=== PATIENT | female | born 1950 | race Caucasian/White ===

== ENCOUNTER → 2016-10-18 | Outpatient (CLI) | payer MEDICARE, OTHER ==
[~2016-10-18] MED LIST: ATOR40TA PO; CALC0.5C PO; CALC200T3 PO; CELE200C PO; HYDR2TAB13 PO; LEVO125T PO; METF10002 PO; PROM25SU34 RC
[2016-10-18 11:50] LABS: BLOOD UREA NITROGEN 17 mg/dL (7-18)
[2016-10-18 11:51] LABS: ASPARTATE AMINO TRANSFERASE 26 U/L (15-37)
[2016-10-19 11:06] LABS: THYROGLOBULIN AB <1.0 IU/mL (0.0-0.9)
== END | disposition home or self-care (01) ==
LOC: STAR 10:26
PROVIDERS: ATTEND Surgery
DX: Z01.818 Encounter for other preprocedural examination (principal)
CPT/HCPCS: 36415; 71020; 80053; 84432; 85025; 86800; 93005

== ENCOUNTER 2016-10-28 07:13 | Observation (INO) | payer MEDICARE, OTHER ==
[~2016-10-28] VITALS: Ht 172.7 cm; Wt 102.0 kg
[~2016-10-28 07:13] MED LIST changes: -CALC0.5C PO; -CALC200T3 PO; -CELE200C PO; -HYDR2TAB13 PO; -LEVO125T PO; -PROM25SU34 RC
[2016-10-28] MEDS ORDERED: LIDOCAINE 1%, 2ML SQ PRN (07:30)
[2016-10-28] MEDS ORDERED: MIDAZOLAM 1 MG/ML, 2ML ONE (07:30)
[2016-10-28] MEDS ORDERED: FENTANYL PF 250 MCG/5ML ONE (07:30)
[2016-10-28] MEDS ORDERED: GABAPENTIN 300 MG CAPSULE PO STA (07:31)
[2016-10-28] MEDS ORDERED: ACETAMINOPHEN 500 MG TABLET PO STA (07:31)
[2016-10-28 07:33] VITALS: BP 122/80
[2016-10-28] MEDS: LACTATED RINGERS 1,000 ML IV SCH ×2 (07:53→13:03)
[2016-10-28] MEDS ORDERED: SUCCINYLCHOLINE 20 MG/ML, 10ML ONE (09:41)
[2016-10-28] MEDS ORDERED: PHENYLEPHRINE 10 MG/ML ONE (09:41)
[2016-10-28] MEDS ORDERED: ROCURONIUM 10 MG/ML ONE (09:41)
[2016-10-28] MEDS ORDERED: CEFAZOLIN 1,000 MG ONE (09:41)
[2016-10-28] MEDS ORDERED: PROPOFOL 10 MG/ML, 20ML ONE (09:41)
[2016-10-28] MEDS ORDERED: HYDROmorphone 1 MG/ML, 1ML IV PRN ×2 (10:00→12:00)
[2016-10-28] MEDS ORDERED: PROMETHAZINE 25 MG/ML, 1ML IV PRN (10:00)
[2016-10-28] MEDS ORDERED: LABETALOL 5MG/ML, 20ML IV PRN (10:00)
[2016-10-28] MEDS ORDERED: MEPERIDINE/PF 25MG/0.5ML IVPush PRN (10:00)
[2016-10-28] MEDS ORDERED: hydrALAzine 20 MG/ML, 1ML IV PRN (10:00)
[2016-10-28] MEDS ORDERED: OXYcodone 5 MG/5 ML ORAL.SOL UDC PO PRN (10:00)
[2016-10-28] MEDS ORDERED: ONDANSETRON 2MG/ML, 2ML IVPush PRN (10:00)
[2016-10-28] MEDS ORDERED: METOCLOPRAMIDE 5 MG/ML, 2ML IV PRN (10:00)
[2016-10-28] MEDS ORDERED: FENTANYL PF 100 MCG/2ML IV PRN (10:00)
[2016-10-28 10:57] LABS: IOPTH BASELINE 168 pg/mL
[2016-10-28] MEDS ORDERED: DIPHENHYDRAMINE 25 MG CAPSULE PO PRN (12:00)
[2016-10-28] MEDS ORDERED: DIPHENHYDRAMINE 50 MG/ML, 1ML IV PRN (12:00)
[2016-10-28] MEDS ORDERED: FENTANYL PF 100 MCG/2ML ONE (12:12)
[2016-10-28] MEDS ORDERED: METOCLOPRAMIDE 5 MG/ML, 2ML ONE (12:12)
[2016-10-28] MEDS ORDERED: OXYcodone 5 MG/5 ML ORAL.SOL UDC ONE (12:12)
[2016-10-28] MEDS ORDERED: ONDANSETRON 2MG/ML, 2ML ONE (12:12)
[2016-10-28] MEDS: POTASSIUM CHLORIDE 20 MEQ in LACTATED RINGERS 1,000 ML IV SCH ×2 (13:56→21:41)
[2016-10-28 14:07] VITALS: BP 129/77
[2016-10-28] MEDS: CALCIUM CARBONATE 500 MG TAB.CHEW PO SCH ×2 (15:42→21:06)
[2016-10-28] MEDS: OXYcodone/APAP 5/325MG TABLET PO PRN (16:22)
[2016-10-28] MEDS: ONDANSETRON 2MG/ML, 2ML IVPush PRN (17:29)
[2016-10-28 20:00] VITALS: BP 114/75
[2016-10-28] MEDS: CALCITRIOL 0.5 MCG CAPSULE PO SCH (21:05)
[2016-10-28] MEDS: ATORVASTATIN 40 MG TABLET PO SCH (21:05)
[2016-10-28 23:24] VITALS: BP 127/80
[2016-10-29] MEDS: ONDANSETRON 2MG/ML, 2ML IVPush PRN ×2 (02:45→08:28)
[2016-10-29 03:18] VITALS: BP 149/64
[2016-10-29] MEDS: OXYcodone/APAP 5/325MG TABLET PO PRN ×3 (03:27→11:56)
[2016-10-29] MEDS: POTASSIUM CHLORIDE 20 MEQ in LACTATED RINGERS 1,000 ML IV SCH ×2 (06:05→13:53)
[2016-10-29 06:32] VITALS: BP 110/70
[2016-10-29] MEDS ORDERED: CALC0.5C PO (07:07)
[2016-10-29] MEDS: CALCITRIOL 0.5 MCG CAPSULE PO SCH ×2 (08:25→19:44)
[2016-10-29] MEDS: metFORMIN XR 500 MG TAB.ER.24H PO SCH (08:25)
[2016-10-29] MEDS: CALCIUM CARBONATE 500 MG TAB.CHEW PO SCH ×4 (08:28→19:45)
[2016-10-29 13:06] VITALS: BP 99/61
[2016-10-29] MEDS ORDERED: PROMETHAZINE 25 MG SUPP PR PRN (17:00)
[2016-10-29] MEDS: ATORVASTATIN 40 MG TABLET PO SCH (19:44)
[2016-10-29 19:58] VITALS: BP 135/68
[2016-10-29] MEDS ORDERED: HYDROmorphone 2MG TABLET PO PRN (20:00)
[2016-10-30] MEDS: CALCIUM CARBONATE 500 MG TAB.CHEW PO SCH ×3 (00:50→10:03)
[2016-10-30 02:27] VITALS: BP 127/77
[2016-10-30 06:46] VITALS: BP 135/74
[2016-10-30] MEDS ORDERED: LACTATED RINGERS 1,000 ML IV SCH (07:30)
[2016-10-30] MEDS: CALCITRIOL 0.5 MCG CAPSULE PO SCH (10:03)
[2016-10-30] MEDS: metFORMIN XR 500 MG TAB.ER.24H PO SCH (10:03)
[2016-10-30] MEDS ORDERED: LEVO125T PO (10:35)
[2016-10-30] MEDS ORDERED: HYDR2TAB13 PO (10:37)
[2016-10-30] MEDS ORDERED: CELE200C PO (10:38)
[2016-10-30] MEDS ORDERED: CALC200T3 PO (10:41)
[2016-10-30] MEDS ORDERED: PROM25SU34 RC (10:42)
== END 2016-10-30 10:55 | disposition home or self-care (01) ==
LOC: OR 07:13 → ORIP 11:51 → 4NOR 12:44 → DCLOUNGE 10-30 10:32
PROVIDERS: ADMIT Surgery; ATTEND Surgery
DX: E21.0 Primary hyperparathyroidism (principal); E04.2 Nontoxic multinodular goiter; E78.00 Pure hypercholesterolemia, unspecified; E78.5 Hyperlipidemia, unspecified; E66.9 Obesity, unspecified; R73.03 Prediabetes; Z85.820 Personal history of malignant melanoma of skin
CPT/HCPCS: 36415; 60240; 60512; 82040; 82310; 82962; 83970; 88305; 88307; 88331; 95865; 95940; 96374; 96375; 96376; C1760; G0378; J0330; J0690; J1200; J2250; J2370; J2405; J2704; J2765; J3010; J3480; J7120; Q0163